=== PATIENT | female | born 1935 | race Caucasian/White ===

== ENCOUNTER → 2016-07-01 | Outpatient (CLI) | payer MEDICARE, OTHER ==
[~2016-07-01] MED LIST: ALBUTEROL2.5 MG/0.5 INH; ASPIR 8181 MG PO; ATROVENT I0.5 MG/2.5 INH; BACTRIM DS1 TAB PO; BENICAR40 MG PO; CARAFATE1 GM PO; DULCOLAX10 MG R; K-TAB 10MEQ10 MEQ PO; LASIX20 MG PO; LASIX40 MG PO; LEVOTHROID (SY50 MCG PO; LOPRESSOR100 M1 PO; LOPRESSOR25 MG PO; LOTENSIN40 MG PO; MIRALAX17 GM PO; NORVASC10 MG PO; OMNICEF 25250 MG/5 M PO; PRAVACHOL40 MG PO; PYRIDIUM100 MG PO; TYLENOL325 MG PO
[2016-07-01 16:49] LABS: ALBUMIN 4.5 gm/dL (3.5-5.0); ANION GAP 13.9 (10.0-19.0); CALCIUM 10.3 mg/dL (8.5-10.5); CREATININE 1.3 mg/dL (0.5-1.1); TOTAL BILIRUBIN 2.5 mg/dL (0.0-1.5); TOTAL PROTEIN 8.7 g/dL (6.0-8.4)
[2016-07-01 16:53] LABS: POTASSIUM 2.9 mMol/L (3.7-5.1)
== END | disposition disaster alternative care site (69) ==
LOC: LNHI 16:23
PROVIDERS: Internal Medicine Cardiovascular Disease
DX: I25.10 Atherosclerotic heart disease of native coronary artery without angina pectoris (principal); I25.5 Ischemic cardiomyopathy; D75.1 Secondary polycythemia; N18.3 Chronic kidney disease, stage 3 (moderate)

== ENCOUNTER → 2016-07-12 | Outpatient (CLI) | payer MEDICARE ==
[2016-07-12 17:49] LABS: ANION GAP 14.7 (10.0-19.0); CALCIUM 9.9 mg/dL (8.5-10.5); CREATININE 1.3 mg/dL (0.5-1.1); POTASSIUM 3.7 mMol/L (3.7-5.1)
== END | disposition disaster alternative care site (69) ==
LOC: LNHI 17:07
PROVIDERS: Internal Medicine Cardiovascular Disease
DX: I25.10 Atherosclerotic heart disease of native coronary artery without angina pectoris (principal); I25.5 Ischemic cardiomyopathy

== ENCOUNTER → 2016-12-14 | Outpatient (CLI) | payer MEDICARE ==
[2016-12-14 16:54] LABS: BASOPHIL # 0.1 K/uL (0.0-0.2); BASOPHIL % 1.5 %; EOSINOPHIL # 0.1 K/uL (0.0-0.5); EOSINOPHIL % 1.6 %; HEMATOCRIT 44.4 % (30.0-46.0); HEMOGLOBIN 15.8 g/dL (10.0-15.0); IMMATURE GRANULOCYTE % 0.3 %; LYMPHOCYTE # 1.4 K/uL (0.8-4.0); LYMPHOCYTE % 19.8 %; MCHC 35.6 gm/dL (32.0-36.5); MCV 87.1 fl (83.0-98.0); MONOCYTE # 0.5 K/uL (0.0-1.0); MONOCYTE % 7.7 %; MPV 11.3 fl (9.4-12.4); NEUTROPHIL # (ANC) 4.8 K/uL (1.8-7.8); NEUTROPHIL % 69.1 %; NRBC % 0 /100WBC (0-0.00); PLATELET COUNT 253 K/uL (150-450); RDW-CV 13.1 % (11.9-14.6); WBC 6.9 K/uL (4.0-11.0)
[2016-12-14 17:11] LABS: ALBUMIN 4.2 gm/dL (3.5-5.0); ANION GAP 10.6 (10.0-19.0); CALCIUM 9.4 mg/dL (8.5-10.5); CREATININE 1.4 mg/dL (0.5-1.1); POTASSIUM 3.6 mMol/L (3.7-5.1); TOTAL BILIRUBIN 1.9 mg/dL (0.0-1.5)
== END ==
LOC: LNHI 16:50
PROVIDERS: Internal Medicine Cardiovascular Disease
DX: I25.10 Atherosclerotic heart disease of native coronary artery without angina pectoris (principal); I25.5 Ischemic cardiomyopathy; D75.1 Secondary polycythemia; N18.3 Chronic kidney disease, stage 3 (moderate); E03.9 Hypothyroidism, unspecified